=== PATIENT | male | born 1955 | race Caucasian/White ===

== ENCOUNTER → 2019-08-29 12:30 | Outpatient (CLI) | payer MEDICARE, SELFPAY ==
--- NOTE | ~2019-08-29 | XR_ITS ---
EXAMINATION: XR chest 2V EXAM DATE: 08/29/2019 12:54 INDICATION: Cough, symptoms one month. TECHNIQUE: Frontal and lateral projections of the chest obtained and reviewed. There is no prior daniel dy for comparison. FINDINGS: The lungs are clear. There are no pleural effusions. The cardiomediastinal silhouette is within normal limits. There is no pneumothorax suspected. The bones and soft tissues are unremarkab le. IMPRESSION: No acute cardiopulmonary findings. Reviewed, dictated and finalized at location A.
== END ==
PROVIDERS: PCP Family Medicine; Visit Provider Family Medicine
DX: R05 Cough (principal)
CPT/HCPCS: 71046

== ENCOUNTER 2021-04-29 00:27 | Day surgery (SDC) | payer MEDICARE, SELFPAY ==
[2021-04-15 13:27] VITALS: BMI 28.7
[2021-04-29 06:42] VITALS: BP 149/85; PULSE 90; RESP 18; TEMP 36.3; O2SAT 98
[2021-04-29] MEDS: LACTATED RINGERS 1,000 ML 150 ML IV CONT (06:53)
--- NOTE | 2021-04-29 07:18 | WPDGICN ---
Assessment and Plan Assessment and plan (1) Family history of colon cancer in father: Code(s): Z80.0 - Family history of malignant neoplasm of digestive organs Status: Acute Assessment and Plan: Patient has a family history of colon cancer in his father. For this reason screening colonoscopy has been advised 5 year intervals. GI Consult Note Consult date/time: 04/29/21 07:18 HPI: Ricardo Espinosa is a 65 year old male Presents for screening colonoscopy. Patient reports that his current weight appetite bowel movements are normal. He denies abdominal pain. He has had no bleeding. Family history is significant that his father had colon cancer at age 55. Patient states his current bowel movements are normal he denies any pain or bleeding. Neoplasia screening is advised. [facility] Past Medical History Medical History (Updated 04/29/21 @ 07:19 by Renato Zhang MD) BMI greater than 30 GERD (gastroesophageal reflux disease) History of non-Hodgkin's lymphoma Hypertension Knee osteoarthritis Screen for colon cancer Screening for lipid disorders Screening for prostate cancer Surgical History Surgical History History of carpal tunnel surgery Family History Family History Other Carcinoma of colon Dementia Hypertension Social History Social History Smoking status: Never smoker Alcohol intake: current Drinks per week: 2 Substance use: never Substance use type: does not use Living arrangements: with family Spiritual care concerns: No Meds Home Medications and Allergies Home Medications Medication Instructions Recorded Confirmed Type ascorbic acid (vitamin C) 1,000 mg 1 g PO DAILY 05/31/20 04/15/21 History tablet cholecalciferol (vitamin D3) 50 50 mcg PO DAILY 05/31/20 04/15/21 History mcg (2,000 unit) capsule simvwovz-sih-hlanm acid 300 1 tablet PO DAILY 05/31/20 04/15/21 History mcg-lycopene 600 mcg-lutein 300 mcg tablet omeprazole 20 mg capsule,delayed 20 mg PO DAILY 05/31/20 04/15/21 History release amlodipine 5 mg tablet 5 mg PO DAILY #90 tablet 02/24/21 04/15/21 Rx metoprolol succinate 50 mg 50 mg PO DAILY #90 tablet 04/21/21 04/29/21 Rx tablet,extended release 24 hr Allergies Allergy/AdvReac Type Severity Reaction Status Date / Time No Known Allergies Allergy Verified 04/29/21 06:41 Vital Signs Vital Signs - 24 hr 04/29/21 06:42 Temperature 97.3 F L Pulse Rate 90 Respiratory Rate 18 Blood Pressure 149/85 H Pulse Oximetry 98 Exam Narrative: Physical exam reveals patient be alert. Vital signs stable. HEENT exam is unremarkable. Patient is anicteric. Lungs are clear to auscultation and percussion. Heart is without murmur or extra sounds. Abdominal exam bowel sounds are present soft nontender with no organomegaly. Digital external rectal exam is normal.
--- NOTE | 2021-04-29 07:47 | P.PNAN_ITS ---
Anes - Initial Pre Proc Eval Procedure: Operation Date: 04/29/21 08:00 Proposed Procedures p Screening Colonoscopy - Renato Zhang MD Date/Time: 04/29/21 07:47 Surgeon: Renato Zhang MD Pre Op Diagnosis: family hx of colon ca Patient Data Age: 65 Gender: M Height: 1.78 m Weight: 91.3 kg Last Vital Signs Temp 97.3 F L 04/29/21 06:42 Pulse 90 04/29/21 06:42 Resp 18 04/29/21 06:42 BP 149/85 H 04/29/21 06:42 Pulse Ox 98 04/29/21 06:42 Allergies Allergy/AdvReac Type Severity Reaction Status Date / Time No Known Allergies Allergy Verified 04/29/21 06:41 Home Medications Medication Instructions Recorded Confirmed Type ascorbic acid (vitamin C) 1,000 mg 1 g PO DAILY 05/31/20 04/15/21 History tablet cholecalciferol (vitamin D3) 50 50 mcg PO DAILY 05/31/20 04/15/21 History mcg (2,000 unit) capsule rqqhnyxn-luu-jojdd acid 300 1 tablet PO DAILY 05/31/20 04/15/21 History mcg-lycopene 600 mcg-lutein 300 mcg tablet omeprazole 20 mg capsule,delayed 20 mg PO DAILY 05/31/20 04/15/21 History release amlodipine 5 mg tablet 5 mg PO DAILY #90 tablet 02/24/21 04/15/21 Rx metoprolol succinate 50 mg 50 mg PO DAILY #90 tablet 04/21/21 04/29/21 Rx tablet,extended release 24 hr Patient hx anesthesia problems: none Family hx anesthesia problems: none Results Review: All pre-operative results and documents have been reviewed as part of the pre-operative evaluation. [facility] Past Medical History Medical History (Updated 04/29/21 @ 07:19 by Renato Zhang MD) BMI greater than 30 GERD (gastroesophageal reflux disease) History of non-Hodgkin's lymphoma Hypertension Knee osteoarthritis Screen for colon cancer Screening for lipid disorders Screening for prostate cancer Surgical History Surgical History History of carpal tunnel surgery Family History Family History Other Carcinoma of colon Dementia Hypertension Social History Social History Smoking status: Never smoker Alcohol intake: current Drinks per week: 2 Substance use: never Substance use type: does not use Living arrangements: with family Spiritual care concerns: No Anes - Eval Final PreProcedure Day of Procedure 04/29/21 07:47 Patient weight: overweight Heart: regular rate and rhythm Lungs: clear to auscultation Airway: Mallampati scale class II Neurological: alert and oriented Last oral intake: >/= 8 hours ASA classification: III Emergent: no Anesthetic plan: proceed Anesthesia type and monitoring: general GIVS and standard monitoring Results Review: All pre-operative results and documents have been reviewed as part of the pre-operative evaluation. Informed Consent: The patient's anesthetic plan and its attendant risks and benefits were discussed with the patient/family/POA. Questions were solicited and answers provided to the satisfaction of the patient/family/POA.
[2021-04-29 08:12] VITALS: BP 137/87; PULSE 76; RESP 24; O2SAT 98
[2021-04-29 08:22] VITALS: BP 136/89; PULSE 68; RESP 18; O2SAT 99
[2021-04-29 08:32] VITALS: BP 131/87; PULSE 64; RESP 21; O2SAT 99
== END 2021-04-29 08:36 | disposition home or self-care (01) ==
PROVIDERS: PCP Family Medicine; Visit Provider Internal Medicine Gastroenterology
PROC: 0DJD8ZZ Inspection of Lower Intestinal Tract, Via Natural or Artificial Opening Endoscopic (ICD-10-PCS; CPT 45378; principal; 2021-04-29 08:00)
DX: Z12.11 Encounter for screening for malignant neoplasm of colon (principal); Z80.0 Family history of malignant neoplasm of digestive organs; K21.9 Gastro-esophageal reflux disease without esophagitis; I10 Essential (primary) hypertension; Z85.72 Personal history of non-Hodgkin lymphomas
CPT/HCPCS: G0105; J2704; J7120

== ENCOUNTER 2021-12-10 10:49 | Outpatient (CLI) | payer MEDICARE, SELFPAY | END 2021-12-10 10:50 | disposition home or self-care (01) | LOC: ANHAUDIO 10:50 | PROVIDERS: PCP Family Medicine; Visit Provider Nurse Practitioner Family | DX: H91.93 Unspecified hearing loss, bilateral (principal) | CPT/HCPCS: 92557; 92567 ==

== ENCOUNTER → 2022-08-13 10:53 | Outpatient (CLI) | payer MEDICARE, SELFPAY ==
--- NOTE | ~2022-08-13 | XR_ITS ---
XR knee RT min 4V 08/13/2022 11:36 Indication: Right knee pain Procedure: 4 views right knee Comparison: 01/09/2019 Findings: There is mild tricompartment osteoarthritis. No fracture, subluxation or dislocation. No si gnificant joint effusion. Impression: 1: Mild tricompartment osteoarthritis. Reviewed, dictated and finalized at location L. WINDER Impression: 1: Mild tricompartment osteoarthritis.
--- NOTE | ~2022-08-13 | XR_ITS ---
XR knee LT min 4V 08/13/2022 11:36 Indication: Bilateral knee arthritis. Procedure: 4 views left knee Comparison: No prior studies for comparison. Findings: There is mild tricompartment osteoarthritis of the left knee. No fracture, subluxation or d islocation. No significant joint effusion. No foreign bodies. Impression: 1: Mild tricompartment osteoarthritis. Reviewed, dictated and finalized at location L. D [employer] Impression: 1: Mild tricompartment osteoarthritis.
== END ==
PROVIDERS: PCP Family Medicine; Visit Provider Family Medicine
DX: M17.0 Bilateral primary osteoarthritis of knee (principal)
CPT/HCPCS: 73564